=== PATIENT | female | born 1980 | race Caucasian/White ===

== ENCOUNTER → 2016-03-15 | Outpatient (CLI) | payer OTHER ==
[2016-03-15 10:54] LABS: FREE T4 (FREE THYROXINE) 0.87 ng/dL (0.93-1.71)
== END ==
LOC: LAB 09:18
PROVIDERS: ATTEND Family Medicine
DX: E03.9 Hypothyroidism, unspecified (principal)
CPT/HCPCS: 36415; 84439; 84443

== ENCOUNTER → 2016-04-26 | Outpatient (CLI) | payer OTHER | LOC: LAB 17:02 | PROVIDERS: ATTEND Family Medicine | DX: E03.9 Hypothyroidism, unspecified (principal) | CPT/HCPCS: 36415; 84439; 84443 ==

== ENCOUNTER → 2016-06-10 | Outpatient (CLI) | payer OTHER ==
[2016-06-10 16:23] LABS: FREE T4 (FREE THYROXINE) 0.9 ng/dL (0.93-1.71)
== END ==
LOC: LAB 15:35
PROVIDERS: ATTEND Family Medicine
DX: E03.9 Hypothyroidism, unspecified (principal); R53.83 Other fatigue
CPT/HCPCS: 36415; 84439; 84443

== ENCOUNTER → 2016-07-15 | Outpatient (CLI) | payer OTHER ==
[2016-07-15 09:48] LABS: FREE T4 (FREE THYROXINE) 1.26 ng/dL (0.93-1.71)
== END ==
LOC: LAB 08:47
PROVIDERS: ATTEND Family Medicine
DX: E03.9 Hypothyroidism, unspecified (principal)
CPT/HCPCS: 36415; 84439; 84443